=== PATIENT | female | born 1955 | race Hispanic/Latino ===

== ENCOUNTER 2022-04-20 15:08 | Emergency (ER) | payer MEDICARE ==
--- OUTSIDE RECORDS SUMMARY | 2022-04-20 15:11 | XMS REPORT | Continuity of Care Document ---
:1955 Author Organization [facility] t Address [address] [place] [address] Care Team Providers Name Role Phone Unavailable Unavailable Unavailable Payers Payer Name Policy Type Policy Number Effective Date Expiration Date S [facility] [id number] 2021 (MEDICARE 00:00:00 REPLACEMENT HMO) Problems This patient has no known problems. Allergies, Adverse Reactions, Alerts This patient has no known allergies or adverse reactions. Medications This patient has no known medications. Procedures This patient has no known procedures. Encounters Start End Encounter Admission Attending Care Care Encounter Source Date/Time Date/Time Type Type Clinicians Facility Department ID 2022-02-26 2022-02-26 [facility]patient [id number]17[facility] 03:17[facility] 2021 Outpatient [id number] 07[facility] 2021-07-31 2021-07-31 Outpatient [facility] [id number] [facility] 08:00:00 08:00:00 [id number] [facility] Results This patient has no known results.
--- NOTE | 2022-04-20 20:02 | EDPHYS ---
Physician Documentation [facility] Name: Winter Schmidt Age: 66 yrs Sex: Female : 1955 Arrival Date: 04/20/2022 Time: 15:13 Bed 1 Private MD: ED Physician Leodan Wetzel HPI: 04/20 16:00 This 66 yrs old Female presents to ER via Ambulatory with complaints of cp Covid+, Cough, Congestion. 16:00 The patient or guardian reports cough, that is intermittent, with no sputum. Onset: The cp symptoms/episode began/occurred last week. Associated signs and symptoms: Pertinent negatives: chest pain, diarrhea, fever, sore throat, vomiting. Severity of symptoms: in the emergency department the symptoms are unchanged despite home interventions. Patient reports testing positive for COVID-19 with home test today. Historical: - Allergies: 15:54 Sulfa (Sulfonamide Antibiotics); bm7 - Home Meds: 15:54 None [Active]; bm7 - PMHx: 15:54 None; bm7 - PSHx: 15:54 Hip; bm7 - Immunization history:: Adult Immunizations up to date, Client reports receiving the 2nd dose of the Covid vaccine, Client reports receiving the 1st dose of the Covid vaccine. - Social history:: Smoking status: Patient denies any tobacco usage or history of. ROS: 16:05 Constitutional: Negative for body aches, chills, fever, poor PO intake. cp 16:05 Cardiovascular: Negative for chest pain, edema, palpitations. cp 16:05 Respiratory: Positive for cough, with no reported sputum, Negative for shortness of breath, wheezing. 16:05 Abdomen/GI: Negative for abdominal pain, nausea, vomiting, and diarrhea. Exam: 16:10 Constitutional: The patient appears in no acute distress, alert, awake, comfortable, cp non-diaphoretic, non-toxic, well developed, well nourished. 16:10 Head/Face: Normocephalic, atraumatic. cp 16:10 Eyes: Periorbital structures: appear normal, Conjunctiva: normal, no exudate, no injection, Sclera: no appreciated abnormality, Lids and lashes: appear normal, bilaterally. 16:10 ENT: External ear(s): are unremarkable, Ear canal(s): are normal, clear, TM's: dullness, bilaterally, Nose: is normal, Mouth: Lips: moist, Oral mucosa: moist, Posterior pharynx: Airway: no evidence of obstruction, patent. 16:10 Chest/axilla: Inspection: normal. 16:10 Cardiovascular: Rate: normal, Rhythm: regular, Edema: is not appreciated, JVD: is not appreciated. 16:10 Respiratory: the patient does not display signs of respiratory distress, Respirations: normal, no use of accessory muscles, no retractions, labored breathing, is not present, Breath sounds: are clear throughout, no decreased breath sounds, no wheezing, decreased breath sounds, are not appreciated, stridor, is not appreciated. 16:10 Abdomen/GI: Exam negative for discomfort, distension, guarding, Inspection: abdomen appears normal. 16:10 Back: pain, is absent, ROM is normal. 16:10 Neuro: Orientation: to person, place \\T\\ time. Mentation: is normal, Motor: moves all fours, strength is normal, Gait: is steady. Vital Signs: 15:52 BP 123 / 76; Pulse 78; Resp 18; Temp 98.3(TE); Pulse Ox 100% on R/A; Weight 45.36 kg bm7 (R); Height 4 ft. 11 in. (149.86 cm); 21:00 BP 117 / 70; Pulse 70; Resp 18; Pulse Ox 100% ; kb3 15:52 Body Mass Index 20.20 (45.36 kg, 149.86 cm) bm7 MDM: 18:21 Patient medically screened. cp 19:58 ED course: Patient declines chest xray at this time. cp 20:00 Data reviewed: vital signs, nurses notes, lab test result(s). cp 20:00 Differential diagnosis: bronchitis, flu, COVID-19, pneumonia. Counseling: I had a cp detailed discussion with the patient and/or guardian regarding: the historical points, exam findings, and any diagnostic results supporting the discharge/admit diagnosis, lab results, to return to the emergency department if symptoms worsen or persist or if there are any questions or concerns that arise at home. ED course: VSS. Patient appears non-toxic and no signs of respiratory distress. Will discharge to home for continued monitoring. 04/20 15:49 Order name: COVID-19 SARS RT PCR (Document "Date of Onset" if Symptomatic) 04/20 17:34 Order name: SARS-COV-2 RT PCR; Complete Time: 19:16 EDTN 04/20 19:16 Interpretation: Results reviewed. cp 04/20 17:37 Order name: Influenza Screen (A ; Complete Time: 19:16 EDMS 04/20 19:16 Interpretation: Reviewed. cp Administered Medications: No medications were administered Disposition Summary: 04/20/22 20:00 Discharge Ordered Location: Home cp Problem: new cp Symptoms: are unchanged cp Condition: Stable cp Diagnosis - Acute bronchitis, unspecified cp Followup: cp - With: Private Physician - When: 2 - 3 days - Reason: Worsening of condition Discharge Instructions: - Discharge Summary Sheet cp - Acute Bronchitis, Adult cp Forms: - Medication Reconciliation Form cp - Thank You Letter cp - Antibiotic Education cp - Prescription Opioid Use cp Prescriptions: - Tessalon Perles 100 mg Oral Capsule - take 1 capsule by ORAL route every 8 hours As needed; 15 capsule; Refills: 0, cp Product Selection Permitted - Zithromax Z-Atif 250 mg Oral Tablet - take 1 tablet by ORAL route as directed for 5 days Day 1 - take two (2) tablets cp one time. Day 2, 3, 4 , 5 take one (1) tablet once daily.; 6 tablet; Refills: 0, Product Selection Permitted Addendum: 04/21/2022 22:34 Co-signature as Attending Physician, Leodan Wetzel MD. r n Signatures: Dispatcher [employer] Leodan Christian MD MD rn Page, Corey, PA PA cp Emily Mercer, RN RN bm7
--- NOTE | 2022-04-20 20:02 | ER ---
Nurse's Notes [facility] Name: Winter Schmidt Age: 66 yrs Sex: Female : 1955 Arrival Date: 04/20/2022 Time: 15:13 Bed 1 Private MD: Diagnosis: Acute bronchitis, unspecified Presentation: 04/20 15:52 Chief complaint: Patient states: I have been coughing for the last week and I tested bm7 positive for COVID today. Coronavirus screen: Client presents with at least one sign or symptom that may indicate coronavirus-19. Standard/surgical mask placed on the client. Client reports previous positive COVID test result. Date of collection: April 20, 2022. Ebola Screen: No symptoms or risks identified at this time. Resp Distress? No respiratory distress is noted at this time. Initial Sepsis Screen: Does the patient meet any 2 criteria? No. Patient's initial sepsis screen is negative. Does the patient have a suspected source of infection? No. Patient's initial sepsis screen is negative. Risk Assessment: Do you want to hurt yourself or someone else? Patient reports no desire to harm self or others. Onset of symptoms was April 20, 2022. 15:52 Method Of Arrival: Ambulatory [facility] 15:52 Acuity: NINI 4 bm7 Triage Assessment: 15:54 General: Appears in no apparent distress. comfortable, Behavior is calm, cooperative, bm7 appropriate for age. Pain: Denies pain. EENT: No deficits noted. No signs and/or symptoms were reported regarding the EENT system. Neuro: No deficits noted. Cardiovascular: No deficits noted. Respiratory: Reports cough that is Breath sounds are clear bilaterally. Denies shortness of breath at rest, on exertion. GI: No deficits noted. No signs and/or symptoms were reported involving the gastrointestinal system. : No deficits noted. No signs and/or symptoms were reported regarding the genitourinary system. Derm: No deficits noted. No signs and/or symptoms reported regarding the dermatologic system. Musculoskeletal: No deficits noted. No signs and/or symptoms reported regarding the musculoskeletal system. Historical: - Allergies: 15:54 Sulfa (Sulfonamide Antibiotics); bm7 - Home Meds: 15:54 None [Active]; bm7 - PMHx: 15:54 None; bm7 - PSHx: 15:54 Hip; bm7 - Immunization history:: Adult Immunizations up to date, Client reports receiving the 2nd dose of the Covid vaccine, Client reports receiving the 1st dose of the Covid vaccine. - Social history:: Smoking status: Patient denies any tobacco usage or history of. Screenin:30 Abuse screen: Denies threats or abuse. Denies injuries from another. Nutritional kb3 screening: No deficits noted. Tuberculosis screening: No symptoms or risk factors identified. Fall Risk None identified. Assessment: 18:30 General: Appears in no apparent distress. Behavior is calm, cooperative, Received care kb3 of pt from [facility] without distress. Pt reports productive cough x1 week and positive covid test at home today. 18:30 Cardiovascular: Denies chest pain, fatigue, lightheadedness, nausea, palpitations, kb3 shortness of breath. Respiratory: Breath sounds are clear bilaterally. 19:30 General: Pt declining xray. kb3 21:38 Cardiovascular: Capillary refill < 3 seconds. Respiratory: Airway is patent. kb3 Vital Signs: 15:52 BP 123 / 76; Pulse 78; Resp 18; Temp 98.3(TE); Pulse Ox 100% on R/A; Weight 45.36 kg bm7 (R); Height 4 ft. 11 in. (149.86 cm); 21:00 BP 117 / 70; Pulse 70; Resp 18; Pulse Ox 100% ; kb3 15:52 Body Mass Index 20.20 (45.36 kg, 149.86 cm) bm7 ED Course: 15:13 Patient arrived in ED. mr 15:14 Luther Lofton PA is PHCP. cp 15:14 Leodan Wetzel MD is Attending Physician. cp 15:54 Triage completed. bm7 15:54 Arm band placed on right wrist. bm7 18:30 Patient has correct armband on for positive identification. Bed in low position. Call kb3 light in reach. Warm blanket given. 18:30 No provider procedures requiring assistance completed. Patient did not have IV access kb3 during this emergency room visit. 18:40 Kayla Tamayo, RN is Primary Nurse. kb3 Administered Medications: No medications were administered Medication: 18:30 VIS not applicable for this client. kb3 Outcome: 20:00 Discharge ordered by . cp 21:00 Discharged to home ambulatory. kb3 21:00 Condition: good 21:00 Discharge instructions given to patient, Instructed on discharge instructions, follow up and referral plans. medication usage, Demonstrated understanding of instructions, follow-up care, medications, Prescriptions given X 2. 21:38 Patient left the ED. kb3 Signatures: Vee Palacios mr Luther Lofton PA PA cp McCarthy, Brittany, RN RN bm7 Kayla Tamayo RN RN kb3
[2022-04-21 01:09] VITALS: TEMP 98.3; O2SAT 100
[2022-04-21 01:11] VITALS: BP 117/70
== END 2022-04-20 21:38 | disposition home or self-care (01) ==
LOC: ER 15:08
DX: J20.9 Acute bronchitis, unspecified (principal); Z20.822 Contact with and (suspected) exposure to COVID-19; Z88.2 Allergy status to sulfonamides
CPT/HCPCS: 36415; 87804 ×2; U0003; 99282